=== PATIENT | male | born 1945 | race Caucasian/White ===

== ENCOUNTER 2024-11-25 09:22 | Emergency (ER) | payer OTHER, MEDICARE ==
[2024-11-25 10:07] LABS: BASOPHILS ABSOLUTE AUTO 0.02 K/uL (0.02-0.10); BASOPHILS PERCENT AUTO 0.2 % (0.0-0.5); EOSINOPHILS ABSOLUTE AUTO 0.04 K/uL (0.04-0.40); EOSINOPHILS PERCENT AUTO 0.4 % (1.0-5.0); LYMPHOCYTES ABSOLUTE AUTO 1.18 K/uL (1.50-4.00); LYMPHOCYTES PERCENT AUTO 10.5 % (20.0-40.0); MEAN PLATELET VOLUME 10.1 fL (6.0-10.0); MONOCYTES ABSOLUTE AUTO 0.70 K/uL (0.20-0.80); MONOCYTES PERCENT AUTO 6.3 % (3.0-10.0); NEUTROPHILS ABSOLUTE AUTO 9.25 K/uL (2.00-7.50); NEUTROPHILS PERCENT AUTO 82.6 % (45.0-70.0); PLATELET COUNT,PLT 125 K/uL (150-400); RED BLOOD CELL COUNT 4.07 M/uL (4.50-6.50); RED CELL DISTRIBUTION WIDTH 15.2 % (11.0-16.0); WHITE BLOOD CELL COUNT,WBC 11.2 K/uL (4.0-11.0)
[2024-11-25 10:33] LABS: A/G RATIO 0.9 (0.8-2.0); ALANINE AMINOTRANSFERASE,ALT 24.0 U/L (12-78); ASPARTATE AMNIOTRANSFERASE,AST 22.0 U/L (15-37); BILIRUBIN TOTAL 1.3 mg/dL (0.0-1.0); BLOOD UREA NITROGEN,BUN 17.0 mg/dL (8-26); CARBON DIOXIDE,CO2 25.8 mmol/L (21.0-32.0); CHLORIDE,CL 104.0 mmol/L (98-107); CREATININE 1.2 mg/dL (0.70-1.30); EST CRCL DRUG DOSING (CG) 52.99 mL/min; ESTIMATED GFR 61.0 mL/min (>60); GLUCOSE RANDOM 102.0 mg/dL (74-100); POTASSIUM,K 3.2 mmol/L (3.5-5.1); PROTEIN TOTAL,TP 6.8 g/dL (6.4-8.2); SODIUM,NA 141.0 mmol/L (136-145)
[2024-11-25] MEDS: Potassium Chloride 20 MEQ Tab.ER PO ONE ×2 (10:48)
== END 2024-11-25 11:00 | disposition home or self-care (01) ==
LOC: LB.ED 09:22
DX: L03.115 Cellulitis of right lower limb (principal); Z79.899 Other long term (current) drug therapy
CPT/HCPCS: 36415; 80053; 83735; 85025; 85379; 99283; A9270